=== PATIENT | female | born 1980 | race Caucasian/White ===

== ENCOUNTER 2017-03-16 09:41 | Emergency (ER) | payer OTHER ==
[~2017-03-16] VITALS: Ht 160 cm; Wt 50.0 kg
[2017-03-16 09:42] VITALS: BP 137/80; PULSE 74; RESP 24; TEMP 97.8; O2SAT 98
[2017-03-16] MEDS ORDERED: SYNT25TA PO (09:55)
[2017-03-16 10:16] LABS: BLOOD, URINE NEG (NEG); COMMENT (UR) CULT NOT INDICATED; CULTURE IF INDICATED CULT NOT INDICATED; GLUCOSE,URINE NEG (NEG); KETONE, URINE NEG (NEG); NITRITE,URINE NEG (NEG); PH, URINE 5.5 (5.0-8.5); URINE COLOR LIGHT-YELLOW (YELLW/STRAW)
[2017-03-16] MEDS ORDERED: KETOROLAC TROMETHAMINE 30 MG/ML (IVP) VIAL IVP ONE (10:30)
[2017-03-16] MEDS ORDERED: MORPHINE SULFATE 4 MG/ML INJ IV PUSH ONE (10:30)
[2017-03-16] MEDS ORDERED: ONDANSETRON HCL 4 MG/2 ML VIAL IVP ONE (10:30)
[2017-03-16] MEDS ORDERED: SODIUM CHLORIDE 0.9% FLUSH 10 ML FLUSH IV FLUSH PRN (10:30)
[2017-03-16 10:37] VITALS: O2SAT 100
[2017-03-16 10:38] VITALS: BP 123/61; PULSE 84; RESP 20; O2SAT 100
[2017-03-16 10:40] LABS: AUTOMATED NEUTROPHIL # 3.1 TH/MM3 (1.8-7.7); BASOPHIL % 0.5 % (0.0-2.0); EOSINOPHIL # 0.1 TH/MM3 (0-0.4); EOSINOPHIL % 2.3 % (0.0-4.0); HEMATOCRIT 35.7 % (35.0-46.0); HEMO FLAGS DIFF FINAL; LYMPH % 24.1 % (9.0-44.0); LYMPHOCYTE # 1.2 TH/MM3 (1.0-4.8); MEAN CELL VOLUME 72.4 FL (80.0-100.0); MEAN CORPUSCULAR HEMOGLOBIN 23.3 PG (27.0-34.0); MEAN CORPUSCULAR HGB CONC 32.1 % (32.0-36.0); MONO % 7.3 % (0.0-8.0); NEUT % 65.8 % (16.0-70.0); PLATELET COUNT 217 TH/MM3 (150-450); RED BLOOD COUNT 4.93 MIL/MM3 (4.00-5.30); RED CELL DISTRIBUTION WIDTH 17.7 % (11.6-17.2); WHITE BLOOD COUNT 4.8 TH/MM3 (4.0-11.0)
[2017-03-16 10:54] LABS: ANION GAP 10 MEQ/L (5-15); AST (GOT) 23 U/L (15-37); BLOOD UREA NITROGEN 11 MG/DL (7-18); CHLORIDE 105 MEQ/L (98-107); GLOMERULAR FILTRATION RATE 117 ML/MIN (>89); SODIUM (NA) 141 MEQ/L (136-145)
[2017-03-16 10:57] LABS: ALKALINE PHOSPHATASE 48 U/L (45-117); ALT (GPT) 24 U/L (10-53); TOTAL BILIRUBIN ADULT 0.8 MG/DL (0.2-1.0)
[2017-03-16] MEDS ORDERED: PERC5TAB12 PO (11:04)
[2017-03-16] MEDS ORDERED: ZOFR8TAB4 SL (11:04)
--- NOTE | 2017-03-16 11:04 | PD ---
HPI Chief Complaint: Flank/Kidney Pain Time Seen by Provider: 10:05 Travel History International Travel<30 days: No Contact w/Intl Traveler<30days: No Traveled to known affect area: No History of Present Illness HPI 37-year-old female here with complaint of right sided flank pain. Patient states that she has had one to 2 days of pain in the right flank, sharp, no radiation. Associated nausea but no vomiting. She notes minimal urinary symptoms. History of ureterolithiasis requiring lithotripsy. States that this feels similar. No fevers, chills, dysuria. She's had history of issues with gallbladder as well, but has not had a cholecystectomy. PFSH Past Medical History Kidney Stones: Yes ?: Not Past Surgical History Other Surgery: Yes (lithotripsy) Social History Alcohol Use: Yes Tobacco Use: Yes Substance Use: No Allergies-Medications (Allergen,Severity, Reaction): Coded Allergies: No Known Allergies (Unverified , 03/16/17) Reported Meds & Prescriptions Reported Meds & Active Scripts Active Percocet (Oxycodone-Acetaminophen) 5-325 mg Tab 1-2 Tab PO Q6H PRN Zofran Odt (Ondansetron Odt) 8 Mg Tab 8 Mg SL Q8H PRN Reported Synthroid (Levothyroxine Sodium) 25 Mcg Tab 25 Mcg PO DAILY Review of Systems Except as stated in HPI: all other systems reviewed are Neg Physical Exam Narrative GENERAL: Well-appearing female in mild distress SKIN: Focused skin assessment warm/dry. HEAD: Normocephalic. EYES: No scleral icterus. No injection or drainage. ENT: Mucous membranes pink and moist. NECK: Supple CARDIOVASCULAR: Regular rate and rhythm. RESPIRATORY: No accessory muscle use. GASTROINTESTINAL: Abdomen soft, right sided CVA and right upper quadrant tenderness to palpation without rebound or guarding, nondistended MUSCULOSKELETAL: Normal gait NEUROLOGICAL: Awake and alert. Normal speech. PSYCHIATRIC: Appropriate mood and affect; insight and judgment normal. Data Data Last Documented VS Vital Signs Date Time Temp Pulse Resp B/P Pulse Ox O2 Delivery O2 Flow Rate FiO2 03/16/17 10:38 84 20 123/61 100 Room Air 03/16/17 09:42 97.8 Orders Urinalysis - C+S If Indicated (03/16/17 09:55) Complete Blood Count With Diff (03/16/17 10:19) Comprehensive Metabolic Panel (03/16/17 10:19) Lipase (03/16/17 10:19) Iv Access Insert/Monitor (03/16/17 10:19) Ecg Monitoring (03/16/17 10:19) Oximetry (03/16/17 10:19) Morphine Inj (Morphine Inj) (03/16/17 10:30) Ondansetron Inj (Zofran Inj) (03/16/17 10:30) Sodium Chloride 0.9% Flush (Ns Flush) (03/16/17 10:30) Ketorolac Inj (Toradol Inj) (03/16/17 10:30) Ed Poc Ultrasound (03/16/17 ) Labs Laboratory Tests Test 03/16/17 03/16/17 10:00 10:03 White Blood Count 4.8 TH/MM3 Red Blood Count 4.93 MIL/MM3 Hemoglobin 11.5 GM/DL Hematocrit 35.7 % Mean Corpuscular Volume 72.4 FL Mean Corpuscular Hemoglobin 23.3 PG Mean Corpuscular Hemoglobin 32.1 % Concent Red Cell Distribution Width 17.7 % Platelet Count 217 TH/MM3 Mean Platelet Volume 10.0 FL Neutrophils (%) (Auto) 65.8 % Lymphocytes (%) (Auto) 24.1 % Monocytes (%) (Auto) 7.3 % Eosinophils (%) (Auto) 2.3 % Basophils (%) (Auto) 0.5 % Neutrophils # (Auto) 3.1 TH/MM3 Lymphocytes # (Auto) 1.2 TH/MM3 Monocytes # (Auto) 0.4 TH/MM3 Eosinophils # (Auto) 0.1 TH/MM3 Basophils # (Auto) 0.0 TH/MM3 CBC Comment DIFF FINAL Differential Comment Sodium Level 141 MEQ/L Potassium Level 4.0 MEQ/L Chloride Level 105 MEQ/L Carbon Dioxide Level 26.0 MEQ/L Anion Gap 10 MEQ/L Blood Urea Nitrogen 11 MG/DL Creatinine 0.58 MG/DL Estimat Glomerular Filtration 117 ML/MIN Rate Random Glucose 79 MG/DL Calcium Level 8.8 MG/DL Total Bilirubin 0.8 MG/DL Aspartate Amino Transf 23 U/L (AST/SGOT) Alanine Aminotransferase 24 U/L (ALT/SGPT) Alkaline Phosphatase 48 U/L Total Protein 7.3 GM/DL Albumin 4.1 GM/DL Lipase 350 U/L Urine Color LIGHT-YELLOW Urine Turbidity CLEAR Urine pH 5.5 Urine Specific [place] 1.007 Urine Protein NEG mg/dL Urine Glucose (UA) NEG mg/dL Urine Ketones NEG mg/dL Urine Occult Blood NEG Urine Nitrite NEG Urine Bilirubin NEG Urine Urobilinogen LESS THAN 2.0 MG/DL Urine Leukocyte Esterase NEG Urine RBC LESS THAN 1 /hpf Urine WBC LESS THAN 1 /hpf Microscopic Urinalysis Comment CULT NOT INDICATED MDM Medical Decision Making Medical Screen Exam Complete: Yes Emergency Medical Condition: Yes Medical Record Reviewed: Yes Differential Diagnosis 37-year-old female here with right sided flank pain history of ureterolithiasis with similar symptoms. Differential includes ureterolithiasis, UTI/ pyelonephritis, musculoskeletal, hepatobiliary pathology and less likely pancreatitis Narrative Course The son monitor, given morphine, Toradol, Zofran with improvement of her symptoms. CBC, CMP and urinalysis were unremarkable. Bedside ultrasound shows mild hydronephrosis in the right kidney. Patient felt improved and will be discharged home with symptomatic management and outpatient urology follow-up Procedures Procedure Narrative Patient consented to bedside ultrasound. Curvilinear probe use in the right upper quadrant and right renal colic gutter revealing mild evidence of hydronephrosis. Gallbladder looks unremarkable without evidence of cholelithiasis, para: Cystic fluid or wall thickening. Diagnosis Primary Impression: Renal colic Referrals: Urologist call for appointment Additional Instructions: Pain and nausea medications as needed. Call urologist for follow-up appointment. Med/Other Pt SpecificInfo: Prescription(s) given Scripts Oxycodone-Acetaminophen (Percocet)5-325 mg Tab1-2 Tab PO Q6H PRN (PAIN) #20 TAB Ref 0 Prov:Greer Wakefield MD 03/16/17 Ondansetron Odt (Zofran Odt)8 Mg Tab8 Mg SL Q8H PRN (NAUSEA OR VOMITING) #10 TAB Ref 0 Prov:Greer Wakefield MD 03/16/17 Disposition: 01 DISCHARGE HOME Condition: Stable Greer Wakefield MD March 16, 2017 11:04
== END 2017-03-16 11:19 | disposition home or self-care (01) ==
LOC: NEPD 09:41
DX: N23 Unspecified renal colic (principal); Z72.0 Tobacco use
CPT/HCPCS: 80053; 81001; 83690; 85025; 96374; 96375; 99285; J1885; J2270; J2405